=== PATIENT | male | born 1975 | race Caucasian/White ===

== ENCOUNTER 2018-12-24 01:22 | Emergency (ER) | payer SELFPAY ==
[2018-12-24 02:58] LABS: ABSOLUTE BASOPHILS # (AUTO) 0.1 10^3/uL (0.0-0.2); ABSOLUTE EOSINOPHILS # (AUTO) 0.1 10^3/uL (0.0-0.6); ABSOLUTE LYMPHOCYTES (AUTO) 2.9 10^3/uL (0.5-4.7); ABSOLUTE MONOCYTES (AUTO) 0.9 10^3/uL (0.1-1.4); ABSOLUTE NEUT (AUTO) 8.3 10^3/uL (1.7-8.2); BASOPHILS % (AUTO) 0.8 % (0-2); EOSINOPHILS % (AUTO) 1.1 % (0-6); HEMOGLOBIN 19.2 g/dL (13.5-17.0); LYMPHOCYTES % (AUTO) 23.3 % (13-45); MEAN CORPUSCULAR HEMOGLOBIN 32.1 pg (27.0-33.4); MEAN CORPUSCULAR HGB CONC 34.6 g/dL (32.0-36.0); MEAN CORPUSCULAR VOLUME 93 fl (80-97); MONOCYTES % (AUTO) 7.5 % (3-13); PLATELET COUNT 246 10^3/uL (150-450); RED BLOOD COUNT 5.97 10^6/uL (4.35-5.55); RED CELL DISTRIBUTION WIDTH 13.5 % (11.5-14.0); SEGMENTED NEUTROPHILS % (AUTO) 67.3 % (42-78); TOTAL CELLS COUNTED % (AUTO) 100 %; WHITE BLOOD COUNT 12.3 10^3/uL (4.0-10.5)
[2018-12-24 03:03] LABS: APPEARANCE,URINE CLEAR; BILIRUBIN,URINE NEGATIVE (NEGATIVE); COLOR,URINE STRAW; GLUCOSE, URINE NEGATIVE (NEGATIVE); HEMATOCRIT 55.3 % (37.9-51.0); KETONES,URINE NEGATIVE (NEGATIVE); LEUKOCYTE ESTERASE,URINE NEGATIVE (NEGATIVE); NITRITE,URINE NEGATIVE (NEGATIVE); PROTEIN,URINE NEGATIVE (NEGATIVE); URINE SPECIFIC GRAVITY 1.002; UROBILINOGEN,URINE NEGATIVE mg/dL (<2.0)
[2018-12-24 03:13] LABS: ALBUMIN 4.8 g/dL (3.5-5.0); ALKALINE PHOSPHATASE 69 U/L (38-126); ANION GAP 12 (5-19); ASPARTATE AMINO TRANSFERASE 31 U/L (17-59); BILIRUBIN,DIRECT 0.2 mg/dL (0.0-0.4); BILIRUBIN,TOTAL 0.8 mg/dL (0.2-1.3); BLOOD UREA NITROGEN 10 mg/dL (7-20); CALCIUM 9.9 mg/dL (8.4-10.2); CARBON DIOXIDE 24 mmol/L (22-30); CHLORIDE 105 mmol/L (98-107); GLUCOSE 132 mg/dL (75-110); POTASSIUM 4.4 mmol/L (3.6-5.0); TOTAL PROTEIN 8.2 g/dL (6.3-8.2)
[2018-12-24 03:22] LABS: URINE AMPHETAMINES SCREEN NEGATIVE; URINE BARBITURATES SCREEN NEGATIVE; URINE BENZODIAZEPINES SCREEN NEGATIVE; URINE COCAINE SCREEN NEGATIVE; URINE MARIJUANA (THC) SCREEN NEGATIVE; URINE METHADONE SCREEN NEGATIVE
[2018-12-24 03:25] LABS: ACETAMINOPHEN < 10 ug/mL (10-30); ALCOHOL < 10 mg/dL (NONE DETECTED); SALICYLATE < 1.0 mg/dL (2.0-20.0); URINE PHENCYCLIDINE SCREEN NEGATIVE
--- NOTE | 2018-12-24 03:37 | ER Document Report ---
ED Psych Disorder / Suicide - General Chief Complaint: Suicidal Ideation Stated Complaint: SUICIDE ATTEMPT Time Seen by Provider: 12/24/18 02:49 TRAVEL OUTSIDE OF THE [place] IN LAST 30 DAYS: No - HPI Notes: This is a 43-year-old gentleman who presented with complaint of depression. Patient states that he has been very sad for long-term exam had some suicidal thoughts. He thought about hanging himself today but it changed his mind. He states he does not feel suicidal dissection but admits to recent suicidal thoughts which led him to come to the emergency department. He denies any neck pain. He denies any physical complaints at this time. - Related Data Allergies/Adverse Reactions: No Known Allergies Allergy (Unverified 12/24/18 03:21) Past Medical History - Social History Smoking Status: Current Every Day Smoker Chew tobacco use (# tins/day): No Drug Abuse: None Family History: Reviewed & Not Pertinent Patient has suicidal ideation: Yes - bungy cord around neck at 12 mn Patient has homicidal ideation: No Review of Systems - Review of Systems Gastrointestinal: denies: Abdomen distended, Abdominal pain, Nausea Neurological/Psychological: Depression, Suicidal ideation. denies: Homicidal ideation -: Yes All other systems reviewed and negative Physical Exam - Vital signs Vitals: Temp Pulse Resp BP Pulse Ox 97.6 F 69 16 123/80 97 12/24/18 01:32 12/24/18 01:32 12/24/18 01:32 12/24/18 01:32 12/24/18 01:32 - General General appearance: Appears well, Alert - Respiratory Respiratory status: No respiratory distress Chest status: Nontender Breath sounds: Normal Chest palpation: Normal - Cardiovascular Rhythm: Regular Heart sounds: Normal auscultation Murmur: No - Abdominal Inspection: Normal Distension: No distension Bowel sounds: Normal Tenderness: Nontender Organomegaly: No organomegaly - Neurological Neuro grossly intact: Yes Cognition: Normal Orientation: AAOx4 Dane Coma Scale Eye Opening: Spontaneous Sahra Coma Scale Verbal: Oriented Sahra Coma Scale Motor: Obeys Commands Sahra Coma Scale Total: 15 Speech: Normal Motor strength normal: LUE, RUE, LLE, RLE Sensory: Normal - Psychological Associated symptoms: Normal affect, Normal mood, Depressed - Patient admits to being depressed. He admits to recent suicidal thoughts today. He will not come clear to me to tell me if he actually had an attempted but nursing note suggested he had an attempt. He denies active suicidal thoughts at this time. Course - Re-evaluation Re-evalutation: 12/24/18 03:36 Given this patient's depression suicidal thoughts, I will have behavioral health assessment done. 12/24/18 06:30 Patient is stable for behavioral health assessment. - Vital Signs Vital signs: Temp Pulse Resp BP Pulse Ox 98.1 F 98 17 124/71 97 12/24/18 06:15 12/24/18 06:15 12/24/18 06:15 12/24/18 06:15 12/24/18 06:15 - Laboratory Result Diagrams: 12/24/18 02:30 12/24/18 02:30 Laboratory results interpreted by me: 12/24/18 12/24/18 02:30 02:30 WBC 12.3 H RBC 5.97 H Hgb 19.2 H Hct 55.3 H Absolute Neuts (auto) 8.3 H Glucose 132 H Salicylates < 1.0 L Acetaminophen < 10 L Discharge - Discharge Clinical Impression: Suicidal ideation Depression Qualifiers: Depression Type: unspecified Qualified Code(s): F32.9 - Major depressive disorder, single episode, unspecified Condition: Stable Disposition: OTHER
--- NOTE | 2018-12-24 11:15 | ER Document Report ---
ED Psych Disorder / Suicide - General Chief Complaint: Suicidal Ideation Stated Complaint: SUICIDE ATTEMPT Time Seen by Provider: 12/24/18 02:49 Primary Care Provider: [facility] [Provider Group] - Follow up as needed [facility] [Outside] - Follow up as needed [facility] [Outside] - Follow up as needed Notes: 43-year-old gentleman presented with complaint of depression and suicidal ideation. Patient states that he has been very sad for long-term exam had some suicidal thoughts. He thought about hanging himself yesterday but it changed his mind. Patient took a bungee cord and wrapped around his neck but was holding the tension off of it when his friend walked in and stopped him. He denies any neck pain. He denies any physical complaints at this time. Patient states he feels much more calm after initial presentation last evening in the emergency department. Denies any auditory or visual hallucinations, complains of depressed mood. TRAVEL OUTSIDE OF THE [place] IN LAST 30 DAYS: No - Related Data Allergies/Adverse Reactions: No Known Allergies Allergy (Unverified 12/24/18 03:21) Past Medical History - Social History Smoking Status: Current Every Day Smoker Chew tobacco use (# tins/day): No Drug Abuse: None Family History: Reviewed & Not Pertinent Patient has suicidal ideation: Yes - bungy cord around neck at 12 mn Patient has homicidal ideation: No Review of Systems - Review of Systems Constitutional: No symptoms reported EENT: No symptoms reported Cardiovascular: No symptoms reported Respiratory: No symptoms reported Gastrointestinal: No symptoms reported Genitourinary: No symptoms reported Male Genitourinary: No symptoms reported Musculoskeletal: See HPI Skin: No symptoms reported Hematologic/Lymphatic: No symptoms reported Neurological/Psychological: See HPI Physical Exam - Vital signs Vitals: Temp Pulse Resp BP Pulse Ox 97.6 F 69 16 123/80 97 12/24/18 01:32 12/24/18 01:32 12/24/18 01:32 12/24/18 01:32 12/24/18 01:32 - Notes Notes: PHYSICAL EXAMINATION: Reviewed vital signs and charting by RN GENERAL: Alert, interacts well. No acute distress. HEAD: Normocephalic, atraumatic. EYES: Pupils equal and round. Extraocular movements intact. ENT: Oral mucosa moist, tongue midline. NECK: Full range of motion. Trachea midline. LUNGS: Clear to auscultation bilaterally, no wheezes, rales, or rhonchi. No respiratory distress. HEART: Regular rate and rhythm. No murmur ABDOMEN: soft, non-tender. No distention. Bowel sounds present EXTREMITIES: Moves all 4 extremities spontaneously. No edema, No cyanosis. PSYCH: Normal affect, normal mood. SKIN: Warm, dry, normal turgor. No rashes or lesions noted. Course - Re-evaluation Re-evalutation: 12/24/18 11:14 As the rounding provider this AM, I assessed the patient's labs, vitals, and records. No concerning findings this morning aside from an elevated hemoglobin. Patient denies any acute complaints. Patient is cleared for disposition by psychiatry. It appears the patient is medically stable for transfer or discharge and mental health wishes to discharge patient with close follow-up services in place. - Vital Signs Vital signs: Temp Pulse Resp BP Pulse Ox 98.6 F 73 18 124/66 95 12/24/18 12:05 12/24/18 12:05 12/24/18 12:05 12/24/18 12:05 12/24/18 12:05 - Laboratory Result Diagrams: 12/24/18 02:30 12/24/18 02:30 Laboratory results interpreted by me: 12/24/18 12/24/18 02:30 02:30 WBC 12.3 H RBC 5.97 H Hgb 19.2 H Hct 55.3 H Absolute Neuts (auto) 8.3 H Glucose 132 H Salicylates < 1.0 L Acetaminophen < 10 L Discharge - Discharge Clinical Impression: Suicidal ideation, History of bipolar disorder, History of intellectual disability Depression Qualifiers: Depression Type: unspecified Qualified Code(s): F32.9 - Major depressive disorder, single episode, unspecified Condition: Stable Disposition: HOME, SELF-CARE Additional Instructions: You have been evaluated by both medical and behavioral health providers while in the emergency department. You have been cleared from both acute medical and psychiatric services. [facility] is involved in your care and going to provide linkage to services and supports. You will be connected with local mental health and should maintain that service for ongoing treatment/care/support. DEPRESSION: Your evaluation reveals that you have mental depression. While symptoms may be vague, they often include disturbance of sleep, fatigue, loss of appetite, and general loss of interest in life. While depression may be a side effect of drugs, or a reaction to a major change in your life, many cases have no known cause. If depression is acute, and related to a major loss in your life, you can expect it to clear completely with time. If you have been depressed a long time, are prone to repeated bouts of depression or low mood, or have been thinking of suicide, get help. Depression can be treated with anti-depressant medication and counselling. Long-term depression will often take a few weeks to clear, even with appropriate medication. Follow-up care is important. SUICIDAL IDEATION: Suicidal ideation is a common medical term for thoughts about suicide, which may be as detailed as a formulated plan, without the suicidal act itself. Although most people who undergo suicidal ideation do not commit suicide, some go on to make suicide attempts. The range of suicidal ideation varies greatly from fleeting to detailed planning, role playing, and unsuccessful attempts. While thoughts about suicide are common, most people do not carry out serious actions to commit suicide. Based upon your evaluation and discussion with you, we do not believe you are currently at risk to act upon your thoughts of suicide. You have agreed to return to the Emergency Department, at any time, if you feel inclined to act upon your suicidal thoughts. FOLLOW-UP CARE: You are being provided prescriptions for Zyprexa 2.5MG twice a day for mood stabilization/impulse control and Buspar 5MG twice a day for anxiety/calming effect/depression/sleep. You should take these medications as prescribed. [facility] was involved with your care and will provide transportation home. They are going to link you to services and supports which include mental health and transportation services. If you experience worsening or a significant change in your symptoms, notify the physician immediately, utilize mobile crisis or return to the Emergency Department at any time for re-evaluation. Referrals: [facility] [Provider Group] - Follow up as needed [facility] [Outside] - Follow up as needed [facility] [Outside] - Follow up as needed
[2018-12-24] MEDS ORDERED: NICOTINE 21 MG/24 HR PATCH.TD24 TD ONE (11:24)
[2018-12-24 12:06] VITALS: BP 124/66
--- NOTE | 2018-12-24 12:51 | PSYCHOLOGICAL NOTE ---
Psych Note - Psych Note Date seen by psych provider: 12/24/18 Time seen by psych provider: 08:05 - Chart review at 0805. Evaluation from 0934- 0941. Coordination with [facility] at 1113. Psych Note: Presenting Problem: IVC via ED Physician (not completed or notarized), SI with attempt, Depression. Patient reported "I was overly stressed out, I felt like I had let my family down, we moved to [place] from [place] 6 months ago, in the transition they took away my disability, my current landlord is going to try to work with us since we owe rent." He identified he had outpatient mental health services in [place] but none set up here. He stated he has been diagnosed with Mild IDD and Bipolar Disorder. He reported he has been prescribed Xanax. He identified he does not have a car driver's license so transportation is difficult. he denied current SI and admitted he put "a thing around his throat last night, it was not tight, and it won't happen again." He denied previous MH hospitalizations. Spoke to [facility] ([place] who identified she could link him to their [facility] for medications and therapy and was going to try to get him set up with [facility] which would be able to take him to the SS office in (where he needs to apply for his Disability/Medicaid). She stated while in [place] it sounds like patient was homeless. She reported patient's roommate/mother of child stated patient had been on BP medication and MH medication the latter he has been out of for many months. Patient was alert and oriented x5 with linear thinking, he wanted to be connected with services locally and get linkage to other services/supports (future/forward/goal oriented thinking) which he understood [facility] could assist with, he denied current SI/HI, he was able to identify his stress and process it, mood was euthymic with congruent affect, he made good eye contact, he was able to engage and carry on dialogue conversation which was within normal limits for rate/tone/prosody. Diagnosis: Adjustment Disorder with Mixed Disturbance of emotions and conduct (move to [facility] 6 months ago) Mild IDD by Hx per patient Bipolar Disorder by Hx per patient Medication recommendations made by the psychiatric medication provider, Dr. Mario MD., includes: Add Zyprexa 2.5MG twice a day for mood stabilization/impulse control Add Buspar 5MG twice a day for anxiety/calming effect/depression/sleep Impression/Plan: Patient is cleared from acute psychiatric services. Recommendation to rescind IVC. Patient was alert and oriented x5 with linear thinking, he wanted to be connected with services locally and get linkage to other services/supports (future/forward/goal oriented thinking) which he understood [facility] could assist with, he denied current SI/HI, he was able to identify his stress and process it, mood was euthymic with congruent affect, he made good eye contact, he was able to engage and carry on dialogue conversation which was within normal limits for rate/tone/prosody. Coordinated with [facility] since they were initially involved, they provided transportation and going to link to their [facility] for medication and therapy, as well as [facility] for transportation services that would help him get to Disability office in . Provided patient with the outpatient MH resource sheet which highlighted [facility], it also documented going to [facility] for Disability, as well as listed medications being provided prescriptions for/Good RX card/[facility] typically being cheapest place for medication. Consulted with Dr. Larson regarding the management and care of patient. ED Physician in agreement with recommendations.
== END 2018-12-24 13:20 | disposition home or self-care (01) ==
LOC: ER 01:22
DX: R45.851 Suicidal ideations (principal); F32.9 Major depressive disorder, single episode, unspecified; F17.200 Nicotine dependence, unspecified, uncomplicated; Z86.59 Personal history of other mental and behavioral disorders
CPT/HCPCS: 36415; 80053; 80307; 81001; 85025; 99285